=== PATIENT | female | born 1955 | race Caucasian/White ===

== ENCOUNTER 2018-03-19 06:28 | Day surgery (SDC) | payer BC ==
--- NOTE | 2018-03-15 11:59 | EKG ---
Test Date: 2018-03-15 Test Time: 09:53:22 Heating Element Repairer: DEANNA MEASUREMENT RESULTS: Intervals: Rate: 87 IA: 154 QRSD: 92 QT: 370 QTc: 445 [place]: P: 39 IA: 154 QRS: 19 T: 76 INTERPRETIVE STATEMENTS: Sinus rhythm with frequent premature ventricular complexes Septal infarct, age undetermined Abnormal ECG No previous ECG available for comparison Electronically Signed On 03-15-18 11:58:02 INTERNET TECHNOLOGY MANAGER by Marcus Santamaria
[2018-03-19] MEDS: OXYMETAZOLINE HCL 0.05% 15ML NAS ONE ×3 (06:58→07:10)
[2018-03-19] MEDS ORDERED: NA CHLORIDE 0.9% 1,000 ML ONE (07:04)
[2018-03-19] MEDS ORDERED: GLYCOPYRROLATE 0.2 MG/ML SYR ONE (07:06)
[2018-03-19] MEDS ORDERED: PROPOFOL 200 MG/20 ML VIAL IV ONE (07:06)
[2018-03-19] MEDS ORDERED: DEXAMETHASONE 10 MG/ML VIAL ONE (07:07)
[2018-03-19] MEDS ORDERED: FENTANYL CITR 250 MCG/5 ML ONE (07:08)
[2018-03-19] MEDS ORDERED: LIDOCAINE 2% MPF 5 ML VIAL ONE (07:08)
[2018-03-19] MEDS ORDERED: ROCURONIUM 50 MG/5 ML VIAL IV ONE (07:09)
[2018-03-19] MEDS ORDERED: NEOSTIGMINE 1 MG/ML -5 ML SYRINGE ONE (07:10)
[2018-03-19] MEDS ORDERED: ONDANSETRON 4 MG/2 ML VIAL ONE (07:10)
[2018-03-19] MEDS ORDERED: MIDAZOLAM HCL 2 MG/2 ML INJ ONE (07:11)
[2018-03-19] MEDS ORDERED: OXYMETAZOLINE HCL 0.05% 15ML NAS ONE (07:17)
[2018-03-19] MEDS ORDERED: NA CHLORIDE 0.9% 500 ML ONE (07:18)
[2018-03-19] MEDS ORDERED: LIDOCAINE 1.5% W/EPI AMP 5 ML ONE (07:18)
[2018-03-19] MEDS ORDERED: LIDOCAINE 1% W/EPI 1:100,000 MDV 50 ML VIAL ONE (07:19)
[2018-03-19] MEDS ORDERED: EPHEDRINE SULF 50 MG/ML VIAL ONE (07:53)
--- NOTE | 2018-03-19 09:01 | P.BOP ---
Preoperative diagnosis: CRS Postoperative diagnosis: CRS Primary procedure: L NE with frontal, maxillary and anterior ethmoidectomy Secondary procedure: R NE with maxillary antrostomy and removal of sinus contents Estimated blood loss: 50ml Specimen: sinus trimmings Anesthesia: General Complications: None Implants: B Propel contour, L Propel mini Fluids & blood products: crystalloid Transferred to: Recovery Room Condition: Good
[2018-03-19] MEDS ORDERED: HYDROCODONE/APAP 5/325 MG TAB ONE (10:30)
--- NOTE | 2018-03-19 18:50 | OP ---
Date of Procedure: 03/19/2018 Surgeon: Marjan Mathew MD Preoperative Diagnoses: Chronic maxillary sinusitis, chronic ethmoid and frontal sinusitis. Procedure: Bilateral nasal endoscopy with maxillary antrostomy and removal of sinus contents, nasal endoscopy with left frontal sinusotomy, nasal endoscopy with left anterior ethmoidectomy, and use of extradural CT intraoperative navigation. Indication For Procedure: Ms. James is a 62-year-old, who presented with chronic sinus problems d espite use of irrigations and multiple courses of antibiotics. She underwent sinus culture showing m ethicillin-susceptible Staph. aureus and was treated with Augmentin. Her post treatment CT scan demo nstrated bilateral silent sinus syndrome of the maxillary sinuses with contracture of the maxillary s inuses including lateralization of the medial wall and uncinate with complete right maxillary opacifi cation and partial left maxillary opacification as well as opacification of the left anterior ethmoid cells and obstruction of the frontal recess. The risks, benefits, and alternatives to the procedure were discussed with the patient, who agreed to proceed. Description Of Procedure: The patient was brought to the operating room. She was placed under gener al anesthesia via oral endotracheal tube. The Fantoo headpiece was attached to the patient's foreh ead and registration was performed using the laser pointer in accordance with residence director instructio ns. Accuracy was felt to be excellent. The straight and curved navigation suctions were calibrated and accuracy was noted to be within 1 mm. Confirmation was confirmed by [id number] matching of t he external anatomical landmarks including the tip of the nose, the base of the columella, glabella a nd the bilateral medial and lateral canthi. The nasal cavity was prepared by trimming of the nasal h airs and packing with Afrin-soaked pledgets. After time for effect, these were removed and a 0-degre e endoscope was used to perform a right nasal endoscopy. The right septum was mildly deviated, but n ot obstructive and no septoplasty was required. The middle turbinate was medialized using a [place]. The edge of the uncinate process was visualized. The uncinate process was noted to be collapsed and lateralized. The maxillary seeker was used to gently mobilize the uncinate, which was then removed u sing a backbiter and 90-degree Blakesley. The maxillary antrostomy was enlarged using the microdebri shahab and 90-degree Blakesley. The maxillary sinus contained very thick mucoid secretions, which requi red multiple aliquots of irrigation and suctioning in order to completely remove the material. The m axillary sinus was noted to be small and contracted consistent with preoperative CT scan findings. A frin-soaked pledgets were packed into the middle meatus and attention was turned to the left side. T he left middle turbinate was noted to be wide, but review of CT revealed no maco bullosa on mediali zation of the middle turbinate with a [place]. There was noted to be excessive soft tissue and the mid dle meatus was packed with Afrin-soaked pledgets to provide decongestion. After removal of the Afrin -soaked pledget, the uncinate process was visualized and medialized using the maxillary seeker. The uncinate was then removed using the backbiter and 90-degree Blakesley. There was moderate thick muco id secretions within the left maxillary sinus, which were suctioned, but did not require irrigation f or removal. Attention was then turned with a 30-degree scope for better visualization of the maxilla ry antrostomy. The 90-degree Blakesley was used to remove some redundant and edematous tissue on the anterior and superior aspects of the antrostomy. A 0-degree endoscope was then used to perform the anterior ethmoidectomy. The curette was used to open up the ethmoid bulla and the 45-degree Blakesle y used to remove bony partitions and edematous and inflamed tissue. The basal lamella of the middle turbinate was not removed or violated. There were some soft tissue noted along the region of the koroma remy and with careful palpation of the globe externally, this was felt to be small amount of orbital c ontents indicating inadvertent violation of the lamina. Careful attention was paid to this area thro ughout the remainder of the course to avoid any further damage to the orbit or the orbital contents. Ethmoid partitions were removed superiorly and a 30 and 70-degree endoscopes were used to dissect al gemini the anterior skull base, opening up the frontal sinus with removal of small fragments of bone and edematous soft tissue from the frontal recess. After adequate removal, the frontal recess was force fully irrigated with multiple aliquots of sterile saline. The area was then suctioned. Bleeding was minimal. A Propel mini-steroid eluting stent was placed under endoscopic guidance into the frontal recess and a Propel Contour steroid eluting stent was placed in the bilateral maxillary antrostomies in order to maintain patency and reduce inflammation during the healing. Given the patient's current use of doxycycline and lack of gross purulence during the exam, no change in antibiotic therapy is i ndicated. The patient was then returned to care of anesthesia for awakening and extubation in the op erating room, which proceeded without difficulty. The patient will be transported to the recovery ro with the plan to discharge to home, pending medical status, and follow up with Dr. Mathew in 10-1 2 days for her first postoperative visit. LEON/CHARMAINE Voice ID: [id number] Report ID: [id number]
== END 2018-03-19 11:35 | disposition home or self-care (01) ==
LOC: OR 06:28
PROVIDERS: ATTEND Otolaryngology
PROC: 09BV8ZZ Excision of Left Ethmoid Sinus, Via Natural or Artificial Opening Endoscopic (ICD-10-PCS; 2018-03-19)
PROC: 09BQ8ZZ Excision of Right Maxillary Sinus, Via Natural or Artificial Opening Endoscopic (ICD-10-PCS; 2018-03-19)
PROC: 09BR8ZZ Excision of Left Maxillary Sinus, Via Natural or Artificial Opening Endoscopic (ICD-10-PCS; 2018-03-19)
PROC: 8E09XBZ Computer Assisted Procedure of Head and Neck Region (ICD-10-PCS; 2018-03-19)
PROC: 09BT8ZZ Excision of Left Frontal Sinus, Via Natural or Artificial Opening Endoscopic (ICD-10-PCS; principal; 2018-03-19 07:30)
DX: J32.1 Chronic frontal sinusitis (principal); J32.2 Chronic ethmoidal sinusitis; J32.0 Chronic maxillary sinusitis; J34.2 Deviated nasal septum; E11.9 Type 2 diabetes mellitus without complications; I10 Essential (primary) hypertension; Z79.84 Long term (current) use of oral hypoglycemic drugs; Z79.899 Other long term (current) drug therapy
CPT/HCPCS: 82962; 88304; 93005; J1100; J2001; J2250; J2405; J2704; J2710; J3010; J7030

== ENCOUNTER 2023-03-23 10:24 | Day surgery (SDC) | payer BC, OTHER ==
[2023-03-20 15:44] LABS: Albumin 3.7 g/dL (3.4-5.0); Bilirubin Total 0.5 mg/dL (0.2-1.0); Potassium 3.9 mEq/L (3.5-5.1); Protein, Total 7.3 g/dL (6.4-8.2)
[2023-03-23] MEDS ORDERED: NA CHLORIDE 0.9% 1,000 ML ONE (10:36)
[2023-03-23] MEDS ORDERED: CEFOXITIN SODIUM 2 GM/VIAL ONE (10:36)
[2023-03-23 11:56] VITALS: O2SAT 100
[2023-03-23] MEDS ORDERED: FENTANYL CITR 100 MCG/2 ML ONE (12:20)
[2023-03-23] MEDS ORDERED: ROCURONIUM 50 MG/5 ML VIAL IV ONE (12:20)
[2023-03-23] MEDS ORDERED: ONDANSETRON 4 MG/2 ML VIAL ONE (12:20)
[2023-03-23] MEDS ORDERED: MIDAZOLAM HCL 2 MG/2 ML INJ ONE (12:20)
[2023-03-23] MEDS ORDERED: LIDOCAINE 2% MPF 5 ML VIAL ONE (12:20)
[2023-03-23] MEDS ORDERED: propofoL 200 MG/20 ML VIAL IV ONE (12:20)
[2023-03-23] MEDS ORDERED: BUPIVACAINE 0.25% PF 30 ML VIAL ONE (12:24)
[2023-03-23] MEDS ORDERED: HYDROMORPHONE HCL 1 MG/ML INJ ONE (12:25)
[2023-03-23] MEDS ORDERED: EPHEDRINE SULF 50 MG/ML VIAL ONE (13:23)
--- NOTE | 2023-03-23 14:24 | P.OP ---
Preoperative diagnosis: Biliary Dyskinesia Postoperative diagnosis: Biliary Dyskinesia Primary procedure: Laparoscopic Cholecystectomy with ICG Cholangiography Anesthesia: GETA + Local Estimated blood loss: <5cc Specimen: Gallbladder Findings: Short Cystic Duct, Very Dense Adhesions Complications: None Transferred to: Recovery Room Condition: Good
--- NOTE | 2023-03-23 15:21 | OP ---
Date of Procedure: 03/23/2023 Surgeon: Juan J Oconnor MD, Preoperative Diagnosis: Biliary dyskinesia. Postoperative Diagnosis: Biliary dyskinesia. Procedure Performed: Laparoscopic cholecystectomy with ICG indocyanine green cholangiography. Anesthesia: General endotracheal plus local with 0.25% Marcaine. Estimated Blood Loss: 5 cc. Specimen: Gallbladder. Findings: 1.Very dense adhesions between the gallbladder and the stomach, between the stomach and the common b ile duct, between the colon and the anterior surface of the liver, between the gallbladder and the co stephie, the omentum and the gallbladder. 2.The patient also had a very short cystic duct. Complications: None. Disposition: Patient transferred to recovery room in good condition. Procedure In Detail: After informed consent was obtained, patient was brought to the operating room, prepped and draped in the usual sterile fashion after adequate anesthesia was achieved. Supraumbili castillo area was anesthetized with 0.25% Marcaine, sharply incised. 5 mm trocar was placed under direct visualization without incident or complication. Insufflation was obtained to 15 mmHg, at this time. There was no injury to vital structures upon entry into the abdomen. Two additional trocars were pl aced, one in the epigastrium, one in the right upper quadrant. Both of these were similarly anesthet ized, sharply incised. 5 mm trocar was placed under direct visualization without incident or complic ation. The umbilical trocar was then upsized to a 12 mm under direct visualization without incident or complication. Patient was positioned head up right-side up position. Ratcheted grasper was used to grasp the patient's gallbladder, placed it toward the patient's right shoulder. Dissection contin ued down to the Helen's pouch of the gallbladder, ultimately dissecting down to grasp the gallblad shahab and placed it towards the right shoulder. The region of the gallbladder was exposed. Indocyanin e green cholangiography was performed at this point. After dissection, 2 structures identified were both cystic duct and cystic artery. These structures were identified at this point and encircled wit h the critical view of safety obtained at this point. The liver was visualized and these structures were skeletonized. So after this was performed, I then performed indocyanine green cholangiography o nce again, found the cystic duct to be quite short. After all of this, significant scar tissue was t aken down and these structures were skeletonized as described. I placed double titanium clips on the proximal side and singly on the distal side of both cystic duct and cystic artery. These structures were then ligated with Endo Bruno. At this point, the gallbladder was removed from the hepatic fos sa without incident or complication. Minimal fulguration of the hepatic fossa was required, at this point. The gallbladder was then placed in the EndoCatch bag, removed through the umbilical trocar si te, sent off for pathologic examination. The abdomen was then reinsufflated at this point. The area was copiously irrigated. Indocyanine green cholangiography was performed once again, showed good bi le drainage into the common duct and no spillage of bile throughout the procedure. Clips were found to be in good anatomic position. No additional hemostatic measures were required. The effluent was suctioned out. Patient positioned back in neutral position. The remainder of the effluent was sucti oned out, at this point. The patient remained in neutral position. I then closed the 12 mm trocar s ite using a Toni-Frank suture passer with 0 Vicryl in an interrupted fashion with good approxima tion of tissues. The abdomen was completely desufflated under direct visualization without incident or complication. All remaining trocars were removed. All skin incisions were then copiously irrigat ed and closed with a 4-0 Monocryl in a running fashion. Dermabond was placed over top. The patient tolerated the procedure without incident or complication and was transferred to PACU in good condition. All counts were correct at the end of the case. FLORENCIO/CHARMAINE Voice ID: [id number] Report ID: [id number]
[2023-03-23 15:58] VITALS: BP 143/66; TEMP 97.3
== END 2023-03-23 15:55 | disposition home or self-care (01) ==
LOC: OR 10:24
PROVIDERS: ATTEND Surgery
PROC: BF50200 Other Imaging of Bile Ducts using Fluorescing Agent, Indocyanine Green Dye, Intraoperative (ICD-10-PCS; 2023-03-23)
PROC: 0FT44ZZ Resection of Gallbladder, Percutaneous Endoscopic Approach (ICD-10-PCS; principal; 2023-03-23 12:30)
DX: K80.10 Calculus of gallbladder with chronic cholecystitis without obstruction (principal); E11.9 Type 2 diabetes mellitus without complications; E78.00 Pure hypercholesterolemia, unspecified; Z86.73 Personal history of transient ischemic attack (TIA), and cerebral infarction without residual deficits
CPT/HCPCS: 36415; 82947 ×2; 88304; 80053; 47563; J2704; J2001; J2250; J3010; J1170; J0694; J2405; J7030